=== PATIENT | male | born 1935 ===

== ENCOUNTER 2017-08-31 06:16 | Day surgery (SDC) | payer MEDICARE, OTHER ==
[~2017-08-31 06:16] MED LIST: Buffered Lidocaine 0.9% SYRIN* 5 ML/SYR SYRINGE INTRADERM ONE; NS 0.9% 1000 ML* 1,000 ML IV SCH
[2017-08-31] MEDS ORDERED: ceFAZolin 2 GM PREMIX (*) 50 ML IVPB ONE (06:33)
[2017-08-31] MEDS ORDERED: Buffered Lidocaine 0.9% SYRIN* 5 ML/SYR SYRINGE ONE (06:34)
[2017-08-31] MEDS ORDERED: Bupivacaine 0.25% SDV* 30 ML ONE (07:08)
[2017-08-31] MEDS ORDERED: Lidocaine 1% MPF wEPI 200,000* 30 ML SDV ONE (07:09)
[2017-08-31] MEDS ORDERED: fentaNYL* 50 MCG/ML 2 ML VIAL (100 MCG VIAL) ONE (07:28)
[2017-08-31] MEDS ORDERED: Midazolam* 1 MG/ML 2 ML VIAL (2 MG) ONE (07:29)
[2017-08-31] MEDS ORDERED: Lidocaine 2% PF * 5 ML VIAL ONE (07:55)
[2017-08-31] MEDS ORDERED: Famotidine IV* 10 MG/ML 2 ML (20 mg) ONE (07:55)
[2017-08-31] MEDS ORDERED: Propofol* 10 MG/ML 20 ML BTL IV PUSH ONE (07:55)
[2017-08-31] MEDS ORDERED: KETAMINE HCL* 50 MG/ML 10 ML VIAL ONE (07:58)
[2017-08-31] MEDS ORDERED: Ondansetron INJ* 2 MG/ML VIAL IV PRN (08:25)
[2017-08-31] MEDS ORDERED: DiMENhydriNATE IV* 50 MG/ML VIAL IV PUSH PRN (08:25)
[2017-08-31] MEDS ORDERED: Acetaminophen TAB* 325 MG PO PRN (08:25)
[2017-08-31 09:48] VITALS: BP 137/74
== END 2017-08-31 10:05 | disposition home or self-care (01) ==
LOC: OR 06:16
PROVIDERS: ATTEND Plastic Surgery
DX: L90.5 Scar conditions and fibrosis of skin (principal); C44.229 Squamous cell carcinoma of skin of left ear and external auricular canal; I10 Essential (primary) hypertension; E03.9 Hypothyroidism, unspecified; E78.00 Pure hypercholesterolemia, unspecified; K21.9 Gastro-esophageal reflux disease without esophagitis; F41.9 Anxiety disorder, unspecified; M19.90 Unspecified osteoarthritis, unspecified site; Z80.8 Family history of malignant neoplasm of other organs or systems
CPT/HCPCS: 88305; 88331; 88332; J0690; J2001; J2250; J2704; J3010

== ENCOUNTER 2017-11-02 10:25 | Emergency (ER) | payer MEDICARE, BC ==
[2017-11-02] MEDS ORDERED: Acetaminophen TAB* 325 MG PO ONE (10:37)
--- NOTE | 2017-11-02 11:04 | RAD ---
HISTORY: Left wrist pain, trauma COMPARISONS: None VIEWS: 3, Frontal, lateral, and oblique views of the left wrist FINDINGS: BONE DENSITY: There is diffuse osteopenia. BONES: There is a dorsal ganglion fracture of the distal radial metaphysis with approximately 40 degrees of dorsal angulation and intra-articular extension. There is a minimally displaced fracture of the styloid process of the ulna. 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 SOFT TISSUES: There is associated soft tissue swelling. OTHER FINDINGS: None. IMPRESSION: DORSALLY ANGULATED FRACTURE OF THE DISTAL RADIAL METAPHYSIS WITH A NONDISPLACED FRACTURE OF THE STYLOID PROCESS OF THE ULNA
--- NOTE | 2017-11-02 11:15 | ED ---
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 Has not taken any medication. Denies numbness/tingling. States movement makes it worse. Is right hand dominant. Did not hit head no loc and no other injuries or complaints. No significant PMHx other than HTN. - History of Current Complaint Chief Complaint: EDExtremityUpper Stated Complaint: FALL WRIST INJURY Time Seen by Provider: 11/02/17 10:35 Hx Obtained From: Patient Mechanism Of Injury: Fall From Height Of: - FOOSH Onset/Duration: Started Hours Ago, Traumatic, Still Present Timing: Constant Severity Initially: Mild Severity Currently: Mild Pain Location: Wrist - left Aggravating Factor(s): Movement Alleviating Factor(s): Rest Associated Signs & Symptoms: Positive: Swelling - obvious deformity Related History: Dominant Hand Right - Allergies/Home Medications Allergies/Adverse Reactions: Allergies Allergy/AdvReac Type Severity Reaction Status Date / Time No Known Allergies Allergy Verified 11/02/17 10:26 PMH/Surg Hx/FS Hx/Imm Hx Endocrine/Hematology History: Reports: Hx Thyroid Disease - ON MEDICATION FOR Cardiovascular History: Reports: Hx Hypertension - ON MEDICATION FOR, Hx Rheumatic Fever - A CHLD GI History: Reports: Hx Gastroesophageal Reflux Disease - ON MEDICATION FOR, Hx Ulcer - 30 YEARS AGO-, Other GI Disorders - 1992-COLON POLYP REMOVED-[place]- HAD SURGERY FOR Musculoskeletal History: Reports: Hx Arthritis - HANDS, KNEES, Other Musculoskeletal History - POLYMYALGIA RHEUMATICA- TREATED WITH PREDNISONE 5 YEARS AGO- NO PROBELMS SI Sensory History: Reports: Hx Cataracts - SECONDARY TO TRAUMA- RIGHT EYE, JUST STARTING IN THE LEFT EYE, Hx Contacts or Glasses - GLASSES, 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 [place]- [facility]CTOMY[facility]. 1992-COLECTOMY- [place] Hx Anesthesia Reactions: No - Immunization History Immunizations Up to Date: Yes Infectious Disease History: No Infectious Disease History: Denies: Traveled Outside the [place] in Last 30 Days - Social History Alcohol Use: Occasionally Substance Use Type: Reports: None Smoking Status (MU): Former Smoker Amount Used/How Often: 1 PPD X 12 YEARS Have You Smoked in the Last Year: No Review of Systems Constitutional: Negative Cardiovascular: Negative Respiratory: Negative Positive: Arthralgia, Myalgia, Decreased ROM, Edema - left wrist Neurological: Negative All Other Systems Reviewed And Are Negative: Yes Physical Exam Triage Information Reviewed: Yes Vital Signs On Initial Exam: Initial Vitals Temp Pulse Resp BP Pulse Ox 97.7 F 65 20 197/87 93 11/02/17 10:26 11/02/17 10:26 11/02/17 10:26 11/02/17 10:26 11/02/17 10:26 BP noted, patient did not take BP meds today, asymptomatic. decreased some at d/ c. patient also in pain/traumatic injury Vital Signs Reviewed: Yes Appearance: Positive: Well-Appearing, No Pain Distress, Well-Nourished Skin: Positive: Warm, Skin Color Reflects Adequate Perfusion, Dry. Negative: Cold, Cyanosis @, Pale, Erythema @ Eyes: Positive: Conjunctiva Clear ENT: Positive: Hearing grossly normal Neck: Positive: Supple Respiratory/Lung Sounds: Positive: Clear to Auscultation, Breath Sounds Present. Negative: Rales, Rhonchi, Wheezes Cardiovascular: Positive: Normal, RRR, Pulses are Symmetrical in both Upper and Lower Extremities - 2+ radial bl. Negative: Murmur, Rub Musculoskeletal: Positive: Limited @ - left wrist, Interruption @ - left wrist, Abnormal @ - obvious "dinner fork" deformity FOOSH of left wrist, Pain @ - left wrist, Edema Left, Other - rest of MSK exam normal. no pain up proximal forearm or at elbow/hand/fingers Neurological: Positive: Normal, Sensory/Motor Intact, Alert, Oriented to Person Place, Time, CN Intact II-III, NV Bundle Intact Distally - Estefani Coma Scale Coma Scale Total: 15 Procedures - Splinting Location: left forearm/wrist Hand-Made Type: plaster Splint: sugar-tong Pre-Proc Neuro Vasc Exam: normal Post-Proc Neuro Vasc Exam: normal, unchanged from pre-exam Diagnostics - Vital Signs Vital Signs Temp Pulse Resp BP Pulse Ox 11/02/17 10:26 97.7 F 65 20 197/87 93 - Laboratory Lab Statement: Any lab studies that have been ordered have been reviewed, and results considered in the medical decision making process. - Radiology wrist Xray Interpretation: Positive (See Comments) - DORSALLY ANGULATED FRACTURE OF THE DISTAL RADIAL METAPHYSIS WITH A NONDISPLACED FRACTURE OF THE STYLOID PROCESS OF THE ULNA Radiology Interpretation Completed By: Radiologist Course/Dx - Course Course Of Treatment: patient did not want pain management other than tylenol while in ED. xray obtained showing left wrist fracture. No other injuries or complaints noted. Dr Anderson called at 1:00pm who stated to go straight to office for reduction and splinting as he was stuck in outpatient office until 4pm. Patient agreed and would go to office once had a ride. Patient was comfortable while in ED. Placed in a temporary sugar tong splint. CMS intact both before and after. No other concerns. Follow up with Ortho for reduction and splint. - Diagnoses Differential Diagnosis/HQI/PQRI: Positive: Contusion, Fracture (Closed), Strain , Sprain Provider Diagnoses: Left wrist fracture Discharge - Discharge Plan Condition: Stable Disposition: HOME Patient Education Materials: Wrist Fracture in Adults (ED) Referrals: Lloyd Babin MD [Medical Doctor] - Ritesh Denson MD [Primary Care Provider] - Additional Instructions: Please go straight to Ortho to have further reduction and splinting applied. Rest, ice elevate. Take ibuprofen or tylenol as needed for pain and inflammation. Take blood pressure medication as prescribed and follow up with PCP for recheck.
[2017-11-02 13:58] VITALS: BP 184/93
== END 2017-11-02 13:58 | disposition home or self-care (01) ==
LOC: ED 10:25
DX: S52.502A Unspecified fracture of the lower end of left radius, initial encounter for closed fracture (principal); S52.615A Nondisplaced fracture of left ulna styloid process, initial encounter for closed fracture; W00.0XXA Fall on same level due to ice and snow, initial encounter; Y93.9 Activity, unspecified; Y92.9 Unspecified place or not applicable; E07.9 Disorder of thyroid, unspecified; I10 Essential (primary) hypertension; K21.9 Gastro-esophageal reflux disease without esophagitis; M35.3 Polymyalgia rheumatica; F41.9 Anxiety disorder, unspecified; Z87.891 Personal history of nicotine dependence
CPT/HCPCS: 99281; A9270-GY